=== PATIENT | male | born 1945 | race African-American/Black ===

== ENCOUNTER 2017-10-10 13:45 | Inpatient (IN) | payer MEDICARE, OTHER ==
[2017-10-10] MEDS: ONDANSETRON 4 MG INJ IV ×2 (15:13→15:35)
[2017-10-10] MEDS: FAMOTIDINE 20 MG INJ IV (15:13)
[2017-10-10] MEDS: SOD CHLORIDE 0.9% 1,000 ML IV ×2 (15:13→21:44)
[2017-10-10 15:53] LABS: ADD MAN DIFF? NO
[2017-10-10 15:59] LABS: BASOPHILS % 0.3 % (0.0-2.0); EOSINOPHILS % 0.2 % (0.0-7.0); HEMOGLOBIN 13.4 g/dl (14.0-18.0); LYMPHOCYTES # 1.6 10^3/ul (0.8-2.9); LYMPHOCYTES % 13.5 % (15.0-51.0); MEAN CORPUSCULAR HEMOGLOBIN 28.6 pg (29.0-33.0); MEAN CORPUSCULAR HGB CONC 31.9 g/dl (32.0-37.0); MEAN CORPUSCULAR VOLUME 89.7 fl (82.0-101.0); MEAN PLATELET VOLUME 9.3 fl (7.4-10.4); MONOCYTE # 0.8 10^3/ul (0.3-0.9); MONOCYTES % 7.2 % (0.0-11.0); NEUTROPHIL # 9.1 10^3/ul (1.6-7.5); NEUTROPHILS % 78.4 % (39.0-77.0); PLATELET COUNT 408 10^3/UL (140-415); RED BLOOD COUNT 4.68 10^6/ul (4.70-6.10)
[2017-10-10 15:59] LABS: WHITE BLOOD COUNT 11.6 10^3/ul (4.8-10.8)
[2017-10-10 16:15] LABS: INR 0.95; PROTIME 12.8 Sec (11.9-14.9)
[2017-10-10 16:16] LABS: PARTIAL THROMBOPLASTIN TIME 29.9 Sec (25.0-35.0)
[2017-10-10 16:22] LABS: ALANINE AMINOTRANSFERASE 9 IU/L (13-69); ALBUMIN/GLOBULIN RATIO 1.02; ALKALINE PHOSPHATASE 68 IU/L (42-121); AMYLASE 93 U/L (11-123); ANION GAP 18 (8-16); ASPARTATE AMINO TRANSFERASE 17 IU/L (15-46); BILIRUBIN,INDIRECT 0.2 mg/dl (0-1.1); BILIRUBIN,TOTAL 0.2 mg/dl (0.2-1.3); BLOOD UREA NITROGEN 10 mg/dl (7-20); CALCIUM 10.4 mg/dl (8.4-10.2); CARBON DIOXIDE 29 mmol/L (21-31); CHLORIDE 101 mmol/L (97-110); CREATININE 1.06 mg/dl (0.61-1.24); GLUCOSE 98 mg/dl (70-220); LIPASE 34 U/L (23-300); POTASSIUM 3.6 mmol/L (3.5-5.1); SODIUM 144 mmol/L (135-144); TOTAL PROTEIN 7.9 g/dl (6.1-8.1)
[2017-10-10 16:31] LABS: LACTIC ACID 2.4 mmol/L (0.5-2.0)
[2017-10-10 16:32] LABS: TROPONIN-I < 0.012 ng/ml (0.000-0.120)
[2017-10-10 17:14] LABS: ADD UMIC YES; UR ASCORBIC ACID NEGATIVE (NEGATIVE); UR BILIRUBIN (Dip) 1+ mg/dL (NEGATIVE); UR BLOOD (Dip) NEGATIVE (NEGATIVE); UR CALCIUM OXALATE CRYSTAL FEW /HPF (NONE SEEN); UR CLARITY CLEAR (CLEAR); UR COLOR AMBER (YELLOW); UR GLUCOSE (Dip) NEGATIVE (NEGATIVE); UR KETONES (Dip) 1+ mg/dL (NEGATIVE); UR LEUKOCYTE ESTERASE (Dip) NEGATIVE Leu/ul (NEGATIVE); UR MUCUS MANY /HPF (NONE SEEN); UR NITRITE (Dip) NEGATIVE (NEGATIVE); UR RBC 5 /HPF (0-5); UR SPECIFIC GRAVITY (Dip) 1.029 (1.003-1.030); UR TOTAL PROTEIN (Dip) 2+ mg/dl (NEGATIVE); UR UROBILINOGEN (Dip) 1+ mg/dL (NEGATIVE); UR WBC 9 /HPF (0-5)
[2017-10-10] MEDS: SODIUM CHLORIDE 0.9% 1L BAG IV* (17:46)
[2017-10-10] MEDS ORDERED: ONDANSETRON 4 MG INJ IV (18:00)
[2017-10-10] MEDS ORDERED: ACETAMINOPHEN 325 MG TAB PO ×2 (18:00→18:30)
[2017-10-10] MEDS ORDERED: HYDROCODONE/APAP (5/325) TAB PO (18:30)
[2017-10-10] MEDS: CEFTRIAXONE 1 GM/50 ML (PMX) 50 ML IVPB ×2 (18:30→19:44)
[2017-10-10] MEDS ORDERED: ZOLPIDEM 5 MG TAB PO (18:30)
[2017-10-10] MEDS ORDERED: NACL 0.9% 3 ML SYG IV (18:30)
[2017-10-10] MEDS ORDERED: DOCUSATE SODIUM 100 MG CAP PO (18:30)
[2017-10-10] MEDS ORDERED: morphine LIQ (10 MG/5 ML) CUP PO (19:00)
[2017-10-10 19:23] LABS: LACTIC ACID 1.2 mmol/L (0.5-2.0)
[2017-10-10] MEDS: AZITHROMYCIN 500MG/NS (PMX) 250 ML IVPB (23:29)
[2017-10-11] MEDS: METOCLOPRAMIDE 5 MG TAB PO ×3 (00:16→12:23)
[2017-10-11] MEDS: DIAZEPAM 5 MG TAB PO ×2 (00:17→08:11)
[2017-10-11] MEDS: CALCIUM CARBONATE 750 MG CHEW TAB PO ×2 (00:18→09:58)
[2017-10-11 06:04] LABS: ADD MAN DIFF? NO
[2017-10-11 06:14] LABS: BASOPHILS % 0.3 % (0.0-2.0); EOSINOPHILS % 0.4 % (0.0-7.0); HEMATOCRIT 36.2 % (42.0-52.0); HEMOGLOBIN 11.4 g/dl (14.0-18.0); LYMPHOCYTES # 1.4 10^3/ul (0.8-2.9); MEAN CORPUSCULAR HEMOGLOBIN 28.1 pg (29.0-33.0); MEAN CORPUSCULAR HGB CONC 31.5 g/dl (32.0-37.0); MEAN CORPUSCULAR VOLUME 89.4 fl (82.0-101.0); MEAN PLATELET VOLUME 9.8 fl (7.4-10.4); MONOCYTE # 0.6 10^3/ul (0.3-0.9); MONOCYTES % 8.2 % (0.0-11.0); NEUTROPHIL # 5.6 10^3/ul (1.6-7.5); NEUTROPHILS % 72.7 % (39.0-77.0); PLATELET COUNT 357 10^3/UL (140-415); RED BLOOD COUNT 4.05 10^6/ul (4.70-6.10); RED CELL DISTRIBUTION WIDTH 16.4 % (11.5-14.5)
[2017-10-11 06:14] LABS: WHITE BLOOD COUNT 7.7 10^3/ul (4.8-10.8)
[2017-10-11 06:37] LABS: LACTIC ACID 0.9 mmol/L (0.5-2.0)
[2017-10-11 06:42] LABS: ANION GAP 13 (8-16); BLOOD UREA NITROGEN 7 mg/dl (7-20); CALCIUM 9.2 mg/dl (8.4-10.2); CARBON DIOXIDE 29 mmol/L (21-31); CHLORIDE 109 mmol/L (97-110); CREATININE 0.89 mg/dl (0.61-1.24); GLUCOSE 81 mg/dl (70-220); MAGNESIUM 1.5 mg/dl (1.7-2.5); PHOSPHORUS 2.7 mg/dl (2.5-4.9); POTASSIUM 3.7 mmol/L (3.5-5.1); SODIUM 147 mmol/L (135-144)
[2017-10-11 07:22] LABS: HEMOGLOBIN A1C 5.4 % (0-5.9)
[2017-10-11] MEDS: PANTOPRAZOLE (EC) 40 MG TAB PO (07:54)
[2017-10-11] MEDS: ONDANSETRON 4 MG INJ IV (08:09)
[2017-10-11] MEDS: SOD CHLORIDE 0.9% 1,000 ML IV (08:11)
[2017-10-11] MEDS: THIAMINE 100 MG TAB PO (08:11)
[2017-10-11] MEDS: FOLIC ACID 1 MG TAB PO (08:11)
[2017-10-11] MEDS: CHOLECALCIFEROL 1,000 UNIT TAB PO (08:18)
[2017-10-11] MEDS ORDERED: MAGNESIUM SULFATE 4 GM/100 ML 100 ML IVPB (10:00)
[2017-10-11] MEDS: MAGNESIUM SULFATE 2 GM/50 ML 50 ML IVPB ×2 (10:32→12:23)
[2017-10-11] MEDS: 1/2 NS + KCL 20 MEQ 1,000 ML IV (12:23)
== END 2017-10-11 17:00 | disposition home or self-care (01) | DRG 392 ==
LOC: TEL 17:55 → E/R 13:45 → TEL 10-11 06:10
DX: R11.2 Nausea with vomiting, unspecified (principal); R65.10 Systemic inflammatory response syndrome (SIRS) of non-infectious origin without acute organ dysfunction; E87.2 Acidosis; N39.0 Urinary tract infection, site not specified; R19.7 Diarrhea, unspecified; H54.7 Unspecified visual loss; I10 Essential (primary) hypertension
CPT/HCPCS: 71045; 80048; 80053; 81001; 82150; 83036; 83605; 83690; 83735; 84100; 84484; 85025; 85610; 85730; 87040; 87086; 93005; 96374; 96375; 96376; 99285-25

== ENCOUNTER 2017-10-14 19:48 | Inpatient (IN) | payer MEDICARE, OTHER ==
[2017-10-14 22:09] LABS: ADD MAN DIFF? NO
[2017-10-14 22:14] LABS: BASOPHILS % 0.2 % (0.0-2.0); EOSINOPHILS % 0.4 % (0.0-7.0); HEMATOCRIT 35.7 % (42.0-52.0); HEMOGLOBIN 11.6 g/dl (14.0-18.0); LYMPHOCYTES # 1.3 10^3/ul (0.8-2.9); LYMPHOCYTES % 13.1 % (15.0-51.0); MEAN CORPUSCULAR HEMOGLOBIN 28.1 pg (29.0-33.0); MEAN CORPUSCULAR HGB CONC 32.5 g/dl (32.0-37.0); MEAN CORPUSCULAR VOLUME 86.4 fl (82.0-101.0); MEAN PLATELET VOLUME 9.4 fl (7.4-10.4); MONOCYTE # 0.7 10^3/ul (0.3-0.9); MONOCYTES % 6.8 % (0.0-11.0); NEUTROPHIL # 7.9 10^3/ul (1.6-7.5); PLATELET COUNT 339 10^3/UL (140-415); RED BLOOD COUNT 4.13 10^6/ul (4.70-6.10); RED CELL DISTRIBUTION WIDTH 15.9 % (11.5-14.5)
[2017-10-14 22:38] LABS: ALANINE AMINOTRANSFERASE 14 IU/L (13-69); ALBUMIN 3.7 g/dl (3.3-4.9); ALBUMIN/GLOBULIN RATIO 1.02; ALKALINE PHOSPHATASE 61 IU/L (42-121); ANION GAP 16 (8-16); ASPARTATE AMINO TRANSFERASE 16 IU/L (15-46); BILIRUBIN,INDIRECT 0.2 mg/dl (0-1.1); BILIRUBIN,TOTAL 0.2 mg/dl (0.2-1.3); BLOOD UREA NITROGEN 9 mg/dl (7-20); CALCIUM 10.6 mg/dl (8.4-10.2); CARBON DIOXIDE 30 mmol/L (21-31); CHLORIDE 101 mmol/L (97-110); CREATININE 0.83 mg/dl (0.61-1.24); GLUCOSE 99 mg/dl (70-220); LIPASE 30 U/L (23-300); POTASSIUM 3.5 mmol/L (3.5-5.1); SODIUM 143 mmol/L (135-144); TOTAL PROTEIN 7.3 g/dl (6.1-8.1)
[2017-10-14] MEDS: SOD CHLORIDE 0.9% 500 ML IV (22:47)
[2017-10-14] MEDS: ONDANSETRON 4 MG INJ IV (22:47)
[2017-10-15] MEDS: SOD CHLORIDE 0.9% 500 ML IV (03:02)
[2017-10-15] MEDS: CEFTRIAXONE 1 GM/50 ML (PMX) 50 ML IVPB (03:17)
[2017-10-15] MEDS ORDERED: ONDANSETRON 4 MG INJ IV ×2 (03:30→05:00)
[2017-10-15] MEDS: AZITHROMYCIN 500MG/NS (PMX) 250 ML IVPB (04:01)
[2017-10-15] MEDS: ACETAMINOPHEN 325 MG TAB PO (04:44)
[2017-10-15] MEDS ORDERED: NACL 0.9% 3 ML SYG IV (05:00)
[2017-10-15] MEDS: PANTOPRAZOLE 40 MG INJ IV ×2 (06:07→17:38)
[2017-10-15] MEDS: SOD CHLORIDE 0.9% 1,000 ML IV ×3 (06:07→20:14)
[2017-10-15 10:41] LABS: HDL CHOLESTEROL 50 mg/dl (31-75); LDL CHOLESTEROL,CALCULATED 80 mg/dl; TRIGLYCERIDES 113 mg/dl (0-149)
[2017-10-15 10:41] LABS: CHOLESTEROL 153 mg/dl (100-200)
[2017-10-15 11:07] LABS: MAGNESIUM 1.5 mg/dl (1.7-2.5)
[2017-10-15] MEDS: SUCRALFATE (100 MG/ML) 10ML CUP PO ×3 (12:51→20:13)
[2017-10-15] MEDS: ONDANSETRON 4 MG INJ IV ×2 (12:52→17:38)
[2017-10-15 15:00] LABS: ALPHA FETOPROTEIN 3.68 IU/L (0.00-7.21)
[2017-10-15] MEDS: MAGNESIUM SULFATE 3 GM in DEXTROSE 5% 100 ML IVPB (16:06)
[2017-10-15 16:57] LABS: ADD UMIC YES; UR ASCORBIC ACID NEGATIVE (NEGATIVE); UR BILIRUBIN (Dip) NEGATIVE (NEGATIVE); UR BLOOD (Dip) NEGATIVE (NEGATIVE); UR CLARITY CLEAR (CLEAR); UR COLOR YELLOW (YELLOW); UR GLUCOSE (Dip) NEGATIVE (NEGATIVE); UR KETONES (Dip) 2+ mg/dL (NEGATIVE); UR LEUKOCYTE ESTERASE (Dip) NEGATIVE Leu/ul (NEGATIVE); UR MUCUS MANY /HPF (NONE SEEN); UR NITRITE (Dip) NEGATIVE (NEGATIVE); UR RBC 4 /HPF (0-5); UR SPECIFIC GRAVITY (Dip) 1.027 (1.003-1.030); UR TOTAL PROTEIN (Dip) 1+ mg/dl (NEGATIVE); UR UROBILINOGEN (Dip) NEGATIVE (NEGATIVE); UR WBC 13 /HPF (0-5)
[2017-10-15 17:15] LABS: CARCINOEMBRYONIC ANTIGEN 3.1 ng/ml (0.0-5.0)
[2017-10-15] MEDS: IOHEXOL 300MG/ML 150 ML BTL (17:31)
[2017-10-15] MEDS: SOD CHLORIDE 0.9% 100 ML (17:31)
[2017-10-15] MEDS: METOCLOPRAMIDE 10 MG INJ IV (17:38)
[2017-10-16] MEDS: ONDANSETRON 4 MG INJ IV ×4 (00:10→17:52)
[2017-10-16] MEDS: METOCLOPRAMIDE 10 MG INJ IV ×4 (00:12→17:52)
[2017-10-16] MEDS ORDERED: VANCOMYCIN IV PER PHARMACY XX (01:00)
[2017-10-16] MEDS: VANCOMYCIN 1.25 GM in SOD CHLORIDE 0.9% 250 ML IVPB (02:17)
[2017-10-16] MEDS ORDERED: AZITHROMYCIN 500MG/NS (PMX) 250 ML IVPB (03:00)
[2017-10-16] MEDS ORDERED: CEFTRIAXONE 1 GM/50 ML (PMX) 50 ML IVPB (03:00)
[2017-10-16 06:21] LABS: ADD MAN DIFF? NO
[2017-10-16 06:30] LABS: BASOPHILS % 0.2 % (0.0-2.0); EOSINOPHILS # 0.1 10^3/ul (0.0-0.5); EOSINOPHILS % 0.9 % (0.0-7.0); HEMATOCRIT 33.2 % (42.0-52.0); HEMOGLOBIN 10.6 g/dl (14.0-18.0); LYMPHOCYTES # 1.9 10^3/ul (0.8-2.9); LYMPHOCYTES % 18.3 % (15.0-51.0); MEAN CORPUSCULAR HEMOGLOBIN 27.9 pg (29.0-33.0); MEAN CORPUSCULAR HGB CONC 31.9 g/dl (32.0-37.0); MEAN CORPUSCULAR VOLUME 87.4 fl (82.0-101.0); MEAN PLATELET VOLUME 8.9 fl (7.4-10.4); MONOCYTE # 0.6 10^3/ul (0.3-0.9); MONOCYTES % 5.9 % (0.0-11.0); NEUTROPHIL # 7.8 10^3/ul (1.6-7.5); NEUTROPHILS % 74.3 % (39.0-77.0); PLATELET COUNT 342 10^3/UL (140-415)
[2017-10-16 06:30] LABS: WHITE BLOOD COUNT 10.4 10^3/ul (4.8-10.8)
[2017-10-16] MEDS: PANTOPRAZOLE 40 MG INJ IV ×2 (06:30→17:52)
[2017-10-16 06:51] LABS: ALANINE AMINOTRANSFERASE 10 IU/L (13-69); ALBUMIN 3.1 g/dl (3.3-4.9); ALBUMIN/GLOBULIN RATIO 0.91; ALKALINE PHOSPHATASE 59 IU/L (42-121); ANION GAP 17 (8-16); ASPARTATE AMINO TRANSFERASE 15 IU/L (15-46); BILIRUBIN,INDIRECT 0.2 mg/dl (0-1.1); BILIRUBIN,TOTAL 0.2 mg/dl (0.2-1.3); BLOOD UREA NITROGEN 4 mg/dl (7-20); CARBON DIOXIDE 25 mmol/L (21-31); CHLORIDE 106 mmol/L (97-110); CREATININE 0.78 mg/dl (0.61-1.24); GLUCOSE 73 mg/dl (70-220); POTASSIUM 3.4 mmol/L (3.5-5.1); SODIUM 145 mmol/L (135-144); TOTAL PROTEIN 6.5 g/dl (6.1-8.1)
[2017-10-16 07:02] LABS: MAGNESIUM 1.8 mg/dl (1.7-2.5)
[2017-10-16] MEDS: SUCRALFATE (100 MG/ML) 10ML CUP PO ×4 (09:00→20:40)
[2017-10-16] MEDS: LIDOCAINE 100 MG SYRINGE (10:43)
[2017-10-16] MEDS: FENTAnyl 50 MCG/ML VIAL (10:43)
[2017-10-16] MEDS: PROPOFOL 40 ML (10:43)
[2017-10-16] MEDS: SIMETH/SOD BICARB/CIT AC PKT (E-Z- GAS II) PO (14:13)
[2017-10-16] MEDS: DIATR MEGLU/DIATRIZOATE SODIUM 120 ML BTL (14:13)
[2017-10-16] MEDS: VANCOMYCIN 1 GM 250 ML IVPB (15:13)
[2017-10-16] MEDS: SOD CHLORIDE 0.9% 1,000 ML IV (18:52)
[2017-10-17] MEDS: METOCLOPRAMIDE 10 MG INJ IV ×4 (00:02→17:37)
[2017-10-17] MEDS: ONDANSETRON 4 MG INJ IV ×4 (00:03→18:17)
[2017-10-17] MEDS: VANCOMYCIN 1 GM 250 ML IVPB (02:35)
[2017-10-17] MEDS: PANTOPRAZOLE 40 MG INJ IV ×2 (06:09→17:37)
[2017-10-17] MEDS: SOD CHLORIDE 0.9% 1,000 ML IV ×2 (07:50→18:17)
[2017-10-17] MEDS: SUCRALFATE (100 MG/ML) 10ML CUP PO ×4 (09:07→21:35)
[2017-10-17] MEDS: ACETAMINOPHEN 325 MG TAB PO (22:17)
[2017-10-18] MEDS: ONDANSETRON 4 MG INJ IV
[2017-10-18] MEDS ORDERED: ONDANSETRON 4 MG INJ IV (00:30)
[2017-10-18] MEDS: METOCLOPRAMIDE 10 MG INJ IV ×4 (01:35→18:23)
[2017-10-18 05:57] LABS: ADD MAN DIFF? NO
[2017-10-18 06:04] LABS: WHITE BLOOD COUNT 8.2 10^3/ul (4.8-10.8)
[2017-10-18 06:04] LABS: BASOPHILS % 0.2 % (0.0-2.0); EOSINOPHILS # 0.1 10^3/ul (0.0-0.5); HEMATOCRIT 34.3 % (42.0-52.0); HEMOGLOBIN 11.1 g/dl (14.0-18.0); LYMPHOCYTES # 1.6 10^3/ul (0.8-2.9); LYMPHOCYTES % 19.3 % (15.0-51.0); MEAN CORPUSCULAR HEMOGLOBIN 27.8 pg (29.0-33.0); MEAN CORPUSCULAR HGB CONC 32.4 g/dl (32.0-37.0); MEAN PLATELET VOLUME 8.8 fl (7.4-10.4); MONOCYTE # 0.6 10^3/ul (0.3-0.9); MONOCYTES % 7.5 % (0.0-11.0); NEUTROPHIL # 5.8 10^3/ul (1.6-7.5); NEUTROPHILS % 71.6 % (39.0-77.0); PLATELET COUNT 339 10^3/UL (140-415); RED BLOOD COUNT 3.99 10^6/ul (4.70-6.10); RED CELL DISTRIBUTION WIDTH 15.5 % (11.5-14.5)
[2017-10-18 06:25] LABS: INR 1.08; PROTIME 14.1 Sec (11.9-14.9); PT RATIO 1.1
[2017-10-18 06:28] LABS: ANION GAP 11 (8-16); CARBON DIOXIDE 32 mmol/L (21-31); CHLORIDE 103 mmol/L (97-110); CREATININE 0.75 mg/dl (0.61-1.24); GLUCOSE 87 mg/dl (70-220); MAGNESIUM 1.3 mg/dl (1.7-2.5); SODIUM 143 mmol/L (135-144)
[2017-10-18 06:31] LABS: BLOOD UREA NITROGEN < 2 mg/dl (7-20)
[2017-10-18 06:32] LABS: POTASSIUM 2.7 mmol/L (3.5-5.1)
[2017-10-18] MEDS: PANTOPRAZOLE 40 MG INJ IV ×2 (06:45→18:23)
[2017-10-18] MEDS: SOD CHLORIDE 0.9% 1,000 ML IV (06:45)
[2017-10-18] MEDS ORDERED: MAGNESIUM SULFATE 3 GM in DEXTROSE 5% 100 ML IVPB (07:00)
[2017-10-18] MEDS: SUCRALFATE (100 MG/ML) 10ML CUP PO ×4 (08:09→21:00)
[2017-10-18] MEDS: MAGNESIUM SULFATE 1 GM/D5W 100 ML IVPB ×3 (08:09→12:33)
[2017-10-18] MEDS: POTASSIUM CHLORIDE 100 ML IVPB ×3 (10:47→15:01)
[2017-10-18 10:51] LABS: PREALBUMIN 7.3 mg/dl (17.6-36.0)
[2017-10-18] MEDS: D5W-0.45 NACL + KCL 20 MEQ 1,000 ML IV ×2 (12:32→21:00)
[2017-10-18] MEDS: ACETAMINOPHEN 325 MG TAB PO (12:33)
[2017-10-19] MEDS: METOCLOPRAMIDE 10 MG INJ IV ×4 (00:01→18:07)
[2017-10-19 06:24] LABS: ADD MAN DIFF? NO
[2017-10-19 06:35] LABS: WHITE BLOOD COUNT 8.5 10^3/ul (4.8-10.8)
[2017-10-19 06:35] LABS: BASOPHILS % 0.4 % (0.0-2.0); EOSINOPHILS # 0.2 10^3/ul (0.0-0.5); EOSINOPHILS % 2.5 % (0.0-7.0); HEMATOCRIT 36.8 % (42.0-52.0); HEMOGLOBIN 12.2 g/dl (14.0-18.0); LYMPHOCYTES # 1.3 10^3/ul (0.8-2.9); LYMPHOCYTES % 15.5 % (15.0-51.0); MEAN CORPUSCULAR HEMOGLOBIN 28.4 pg (29.0-33.0); MEAN CORPUSCULAR HGB CONC 33.2 g/dl (32.0-37.0); MEAN CORPUSCULAR VOLUME 85.6 fl (82.0-101.0); MEAN PLATELET VOLUME 8.8 fl (7.4-10.4); MONOCYTE # 0.7 10^3/ul (0.3-0.9); MONOCYTES % 7.8 % (0.0-11.0); NEUTROPHIL # 6.2 10^3/ul (1.6-7.5); NEUTROPHILS % 73.4 % (39.0-77.0); PLATELET COUNT 348 10^3/UL (140-415); RED CELL DISTRIBUTION WIDTH 15.7 % (11.5-14.5)
[2017-10-19 06:49] LABS: ANION GAP 13 (8-16); CALCIUM 9.2 mg/dl (8.4-10.2); CARBON DIOXIDE 31 mmol/L (21-31); CHLORIDE 103 mmol/L (97-110); CREATININE 0.84 mg/dl (0.61-1.24); GLUCOSE 94 mg/dl (70-220); MAGNESIUM 1.6 mg/dl (1.7-2.5); POTASSIUM 3.3 mmol/L (3.5-5.1); SODIUM 144 mmol/L (135-144)
[2017-10-19] MEDS: PANTOPRAZOLE 40 MG INJ IV ×2 (06:50→18:07)
[2017-10-19] MEDS: D5W-0.45 NACL + KCL 20 MEQ 1,000 ML IV ×2 (06:50→16:23)
[2017-10-19 06:55] LABS: BLOOD UREA NITROGEN < 2 mg/dl (7-20)
[2017-10-19] MEDS: SUCRALFATE (100 MG/ML) 10ML CUP PO ×4 (09:00→21:00)
[2017-10-19] MEDS: POTASSIUM CHLORIDE 100 ML IVPB ×2 (15:43→18:07)
[2017-10-19] MEDS: ACETAMINOPHEN 325 MG TAB PO (16:23)
[2017-10-19] MEDS: ALBUTEROL/IPRATROPIUM (NEB) 3 ML AMP HHN (20:28)
[2017-10-19] MEDS ORDERED: ACETAMINOPHEN 1000MG/100ML IV 100 ML IVPB (22:00)
[2017-10-20] MEDS: D5W-0.45 NACL + KCL 20 MEQ 1,000 ML IV ×3 (00:33→23:00)
[2017-10-20] MEDS: METOCLOPRAMIDE 10 MG INJ IV ×5 (00:33→23:12)
[2017-10-20] MEDS ORDERED: POTASSIUM CHLORIDE 50 ML IVPB (06:00)
[2017-10-20] MEDS: PANTOPRAZOLE 40 MG INJ IV ×2 (06:09→17:46)
[2017-10-20 06:34] LABS: ANION GAP 10 (8-16); BLOOD UREA NITROGEN < 2 mg/dl (7-20); CALCIUM 9.2 mg/dl (8.4-10.2); CARBON DIOXIDE 29 mmol/L (21-31); CHLORIDE 106 mmol/L (97-110); CREATININE 0.77 mg/dl (0.61-1.24); GLUCOSE 167 mg/dl (70-220); SODIUM 141 mmol/L (135-144)
[2017-10-20] MEDS: SUCRALFATE (100 MG/ML) 10ML CUP PO ×4 (08:43→20:38)
[2017-10-20] MEDS ORDERED: LIDOCAINE 2% (SDV) 5 ML INJ (12:47)
[2017-10-20] MEDS ORDERED: MIDAZOLAM 1 MG/ML 2 ML INJ (12:47)
[2017-10-20] MEDS ORDERED: CEFAZOLIN 2 GM/50 ML (PMX) 50 ML IVPB (12:53)
[2017-10-20] MEDS ORDERED: FENTAnyl 50 MCG/ML VIAL IV (13:00)
[2017-10-20] MEDS ORDERED: PROCHLORPERAZINE 10 MG INJ IV (13:00)
[2017-10-20] MEDS ORDERED: MEPERIDINE 25 MG INJ IV (13:00)
[2017-10-20] MEDS ORDERED: HYDROmorphONE (0.2 MG/ML) 10ML SYG IV (13:00)
[2017-10-20] MEDS ORDERED: ONDANSETRON 4 MG INJ IV (13:00)
[2017-10-20] MEDS ORDERED: DIPHENHYDRAMINE 50 MG INJ IV (13:00)
[2017-10-20] MEDS ORDERED: FENTAnyl 50 MCG/ML VIAL (13:10)
[2017-10-20] MEDS ORDERED: LABETALOL HCL 20MG INJ (13:11)
[2017-10-20] MEDS ORDERED: hydrALAzine 20 MG INJ (13:37)
[2017-10-20] MEDS: hydrALAzine 20 MG INJ IV ×3 (13:43→14:01)
[2017-10-20] MEDS ORDERED: LABETALOL HCL 20MG INJ IV (14:00)
[2017-10-20] MEDS: COSYNTROPIN 0.25 MG INJ IV (15:33)
[2017-10-20] MEDS: SOD CHLORIDE 0.9% 500 ML IV (20:44)
[2017-10-21] MEDS: METOCLOPRAMIDE 10 MG INJ IV (05:36)
[2017-10-21] MEDS: PANTOPRAZOLE 40 MG INJ IV (05:36)
[2017-10-21] MEDS: D5W-0.45 NACL + KCL 20 MEQ 1,000 ML IV (06:07)
[2017-10-21] MEDS: SUCRALFATE (100 MG/ML) 10ML CUP PO ×4 (08:29→21:35)
[2017-10-21] MEDS: METOCLOPRAMIDE 5 MG TAB PO ×3 (17:00→21:35)
[2017-10-21] MEDS: PANTOPRAZOLE (EC) 40 MG TAB PO (19:02)
[2017-10-21] MEDS: ACETAMINOPHEN 325 MG TAB PO (21:35)
[2017-10-22] MEDS: PANTOPRAZOLE (EC) 40 MG TAB PO ×2 (05:21→17:33)
[2017-10-22] MEDS: SUCRALFATE (100 MG/ML) 10ML CUP PO ×3 (08:49→17:33)
[2017-10-22] MEDS: METOCLOPRAMIDE 5 MG TAB PO ×3 (08:49→17:33)
== END 2017-10-22 20:05 | disposition home health service (06) | DRG 391 ==
LOC: MS2 10-15 03:27 → E/R 19:48 → MS2 10-16 18:33
PROC: 0DB68ZX Excision of Stomach, Via Natural or Artificial Opening Endoscopic, Diagnostic (ICD-10-PCS; principal; 2017-10-16 10:25)
PROC: 0DH63UZ Insertion of Feeding Device into Stomach, Percutaneous Approach (ICD-10-PCS; 2017-10-16 10:25)
DX: K22.4 Dyskinesia of esophagus (principal); J18.9 Pneumonia, unspecified organism; E43 Unspecified severe protein-calorie malnutrition; Z68.1 Body mass index [BMI] 19.9 or less, adult; K21.0 Gastro-esophageal reflux disease with esophagitis; I10 Essential (primary) hypertension; F41.9 Anxiety disorder, unspecified; K20.9 Esophagitis, unspecified; K57.90 Diverticulosis of intestine, part unspecified, without perforation or abscess without bleeding; H54.8 Legal blindness, as defined in USA; D64.9 Anemia, unspecified; Z87.891 Personal history of nicotine dependence; F12.10 Cannabis abuse, uncomplicated; R10.13 Epigastric pain; K29.80 Duodenitis without bleeding; K22.2 Esophageal obstruction
CPT/HCPCS: 36415; 71045; 71250; 72072; 74177; 74240; 80048; 80053; 80061; 80202; 81001; 82105; 82378; 82533; 83690; 83735; 84134; 84443; 85025; 85610; 85730; 87040; 87045; 87075; 88305; 88312; 88313; 92610; 93005; 94664; 96374; 96375; 97162; 99285-25

== ENCOUNTER 2017-11-12 07:03 | Emergency (ER) | payer MEDICARE, OTHER ==
[2017-11-12] MEDS: LIDOCAINE 1% (MDV) 10 ML INJ INJ ×2 (08:15→08:29)
[2017-11-12] MEDS: CEFTRIAXONE 1 GM INJ IM (08:27)
== END 2017-11-12 08:46 | disposition home or self-care (01) ==
LOC: FTE 07:03
DX: L02.31 Cutaneous abscess of buttock (principal); I10 Essential (primary) hypertension; Z87.891 Personal history of nicotine dependence
CPT/HCPCS: 10061; 96372; 99284-25

== ENCOUNTER 2017-11-14 06:39 | Emergency (ER) | payer MEDICARE, OTHER | END 2017-11-14 07:50 | disposition home or self-care (01) | LOC: FTE 06:39 | DX: Z48.01 Encounter for change or removal of surgical wound dressing (principal); I10 Essential (primary) hypertension; Z87.891 Personal history of nicotine dependence | CPT/HCPCS: 99281 ==

== ENCOUNTER 2017-12-15 06:19 | Emergency (ER) | payer MEDICARE, OTHER | END 2017-12-15 09:10 | disposition home or self-care (01) | LOC: E/R 06:19 | DX: K22.4 Dyskinesia of esophagus (principal); I10 Essential (primary) hypertension; F17.210 Nicotine dependence, cigarettes, uncomplicated; Z51.89 Encounter for other specified aftercare | CPT/HCPCS: 99282 ==

== ENCOUNTER 2018-12-08 19:24 | Inpatient (IN) | payer MEDICARE, OTHER ==
[2018-12-08 21:41] LABS: ADD MAN DIFF? NO
[2018-12-08 21:43] LABS: WHITE BLOOD COUNT 14.2 10^3/ul (4.8-10.8)
[2018-12-08 21:43] LABS: BASOPHILS % 0.2 % (0.0-2.0); EOSINOPHILS # 0.2 10^3/ul (0.0-0.5); EOSINOPHILS % 1.1 % (0.0-7.0); HEMATOCRIT 43.4 % (42.0-52.0); HEMOGLOBIN 13.8 g/dl (14.0-18.0); LYMPHOCYTES # 1.7 10^3/ul (0.8-2.9); LYMPHOCYTES % 12.3 % (15.0-51.0); MEAN CORPUSCULAR HEMOGLOBIN 29.3 pg (29.0-33.0); MEAN CORPUSCULAR HGB CONC 31.8 g/dl (32.0-37.0); MEAN CORPUSCULAR VOLUME 92.1 fl (82.0-101.0); MEAN PLATELET VOLUME 8.5 fl (7.4-10.4); MONOCYTE # 1.1 10^3/ul (0.3-0.9); MONOCYTES % 7.5 % (0.0-11.0); NEUTROPHIL # 11.2 10^3/ul (1.6-7.5); NEUTROPHILS % 78.6 % (39.0-77.0); PLATELET COUNT 289 10^3/UL (140-415); RED BLOOD COUNT 4.71 10^6/ul (4.70-6.10); RED CELL DISTRIBUTION WIDTH 14.5 % (11.5-14.5)
[2018-12-08] MEDS ORDERED: IOHEXOL 300MG/ML 30 ML BTL (21:47)
[2018-12-08] MEDS ORDERED: DIATR MEGLU/DIATRIZOATE SODIUM 30 ML SOLUTION PO (22:00)
[2018-12-08 22:07] LABS: ALANINE AMINOTRANSFERASE 18 IU/L (13-69); ALBUMIN 4.4 g/dl (3.3-4.9); ALBUMIN/GLOBULIN RATIO 1.12; ALKALINE PHOSPHATASE 85 IU/L (42-121); ANION GAP 11 (5-13); ASPARTATE AMINO TRANSFERASE 26 IU/L (15-46); BILIRUBIN,INDIRECT 0.5 mg/dl (0-1.1); BILIRUBIN,TOTAL 0.5 mg/dl (0.2-1.3); BLOOD UREA NITROGEN 15 mg/dl (7-20); CALCIUM 11.2 mg/dl (8.4-10.2); CARBON DIOXIDE 28 mmol/L (21-31); CHLORIDE 103 mmol/L (97-110); CREATININE 0.97 mg/dl (0.61-1.24); GLUCOSE 101 mg/dl (70-220); LIPASE 53 U/L (23-300); POTASSIUM 4.6 mmol/L (3.5-5.1); SODIUM 142 mmol/L (135-144); TOTAL PROTEIN 8.3 g/dl (6.1-8.1)
[2018-12-08] MEDS: SOD CHLORIDE 0.9% 1,000 ML IV (22:38)
[2018-12-08] MEDS ORDERED: ACETAMINOPHEN 325 MG TAB PO (23:00)
[2018-12-08] MEDS ORDERED: ONDANSETRON 4 MG INJ IV ×2 (23:00)
[2018-12-08] MEDS ORDERED: NACL 0.9% 3 ML SYG IV (23:00)
[2018-12-08] MEDS ORDERED: ACETAMINOPHEN 650 MG SUPP PR (23:00)
[2018-12-09] MEDS: KETOROLAC 15 MG INJ IV (00:37)
[2018-12-09] MEDS: SOD CHLORIDE 0.9% 1,000 ML IV ×2 (00:38→14:56)
[2018-12-09 05:19] LABS: ADD MAN DIFF? NO
[2018-12-09 05:21] LABS: WHITE BLOOD COUNT 10.5 10^3/ul (4.8-10.8)
[2018-12-09 05:21] LABS: BASOPHILS % 0.4 % (0.0-2.0); EOSINOPHILS # 0.2 10^3/ul (0.0-0.5); HEMATOCRIT 40.9 % (42.0-52.0); HEMOGLOBIN 12.9 g/dl (14.0-18.0); LYMPHOCYTES # 1.5 10^3/ul (0.8-2.9); LYMPHOCYTES % 13.8 % (15.0-51.0); MEAN CORPUSCULAR HEMOGLOBIN 29.1 pg (29.0-33.0); MEAN CORPUSCULAR HGB CONC 31.5 g/dl (32.0-37.0); MEAN CORPUSCULAR VOLUME 92.3 fl (82.0-101.0); MEAN PLATELET VOLUME 9.5 fl (7.4-10.4); MONOCYTE # 0.9 10^3/ul (0.3-0.9); MONOCYTES % 8.6 % (0.0-11.0); NEUTROPHIL # 7.8 10^3/ul (1.6-7.5); NEUTROPHILS % 74.8 % (39.0-77.0); PLATELET COUNT 295 10^3/UL (140-415); RED BLOOD COUNT 4.43 10^6/ul (4.70-6.10); RED CELL DISTRIBUTION WIDTH 14.6 % (11.5-14.5)
[2018-12-09 06:02] LABS: ALANINE AMINOTRANSFERASE 13 IU/L (13-69); ALBUMIN 3.8 g/dl (3.3-4.9); ALBUMIN/GLOBULIN RATIO 1.11; ALKALINE PHOSPHATASE 75 IU/L (42-121); ANION GAP 7 (5-13); ASPARTATE AMINO TRANSFERASE 24 IU/L (15-46); BILIRUBIN,INDIRECT 0.5 mg/dl (0-1.1); BILIRUBIN,TOTAL 0.5 mg/dl (0.2-1.3); BLOOD UREA NITROGEN 16 mg/dl (7-20); CALCIUM 10.3 mg/dl (8.4-10.2); CARBON DIOXIDE 28 mmol/L (21-31); CHLORIDE 105 mmol/L (97-110); CHOLESTEROL 172 mg/dl (100-200); CREATININE 0.96 mg/dl (0.61-1.24); GLUCOSE 98 mg/dl (70-220); HDL CHOLESTEROL 42 mg/dl (31-75); LDL CHOLESTEROL,CALCULATED 101 mg/dl; MAGNESIUM 1.9 mg/dl (1.7-2.5); POTASSIUM 4.1 mmol/L (3.5-5.1); SODIUM 140 mmol/L (135-144); TOTAL PROTEIN 7.2 g/dl (6.1-8.1); TRIGLYCERIDES 147 mg/dl (0-149)
[2018-12-09] MEDS: PANTOPRAZOLE 40 MG INJ IV (06:18)
[2018-12-09 07:04] LABS: THYROID STIMULATING HORMONE 0.556 MIU/L (0.465-4.680)
[2018-12-09 07:14] LABS: HEMOGLOBIN A1C 5.5 % (0-5.9)
[2018-12-09] MEDS: LORAZEPAM 2 MG INJ IV (11:48)
[2018-12-09] MEDS: DIAZEPAM 5 MG TAB PO (20:35)
[2018-12-10] MEDS: SOD CHLORIDE 0.9% 1,000 ML IV (04:20)
[2018-12-10 05:53] LABS: ADD MAN DIFF? NO
[2018-12-10 05:57] LABS: BASOPHIL # 0.1 10^3/ul (0.0-0.1); BASOPHILS % 0.3 % (0.0-2.0); EOSINOPHILS # 0.3 10^3/ul (0.0-0.5); EOSINOPHILS % 1.5 % (0.0-7.0); HEMATOCRIT 39.3 % (42.0-52.0); HEMOGLOBIN 12.9 g/dl (14.0-18.0); LYMPHOCYTES # 1.5 10^3/ul (0.8-2.9); LYMPHOCYTES % 8.6 % (15.0-51.0); MEAN CORPUSCULAR HEMOGLOBIN 29.5 pg (29.0-33.0); MEAN CORPUSCULAR HGB CONC 32.8 g/dl (32.0-37.0); MEAN CORPUSCULAR VOLUME 89.9 fl (82.0-101.0); MEAN PLATELET VOLUME 10.3 fl (7.4-10.4); MONOCYTES % 6.1 % (0.0-11.0); NEUTROPHIL # 14.1 10^3/ul (1.6-7.5); NEUTROPHILS % 83.1 % (39.0-77.0); PLATELET COUNT 240 10^3/UL (140-415); RED BLOOD COUNT 4.37 10^6/ul (4.70-6.10); RED CELL DISTRIBUTION WIDTH 14.3 % (11.5-14.5)
[2018-12-10 05:57] LABS: WHITE BLOOD COUNT 16.9 10^3/ul (4.8-10.8)
[2018-12-10 06:13] LABS: ANION GAP 8 (5-13); BLOOD UREA NITROGEN 14 mg/dl (7-20); CALCIUM 10.1 mg/dl (8.4-10.2); CARBON DIOXIDE 24 mmol/L (21-31); CHLORIDE 109 mmol/L (97-110); CREATININE 0.85 mg/dl (0.61-1.24); GLUCOSE 95 mg/dl (70-220); MAGNESIUM 1.7 mg/dl (1.7-2.5); POTASSIUM 4.2 mmol/L (3.5-5.1); SODIUM 141 mmol/L (135-144)
[2018-12-10] MEDS: PANTOPRAZOLE 40 MG INJ IV (06:23)
[2018-12-10] MEDS ORDERED: PROPOFOL 40 ML (12:54)
[2018-12-10] MEDS ORDERED: LIDOCAINE 2% (SDV) 5 ML INJ (12:54)
[2018-12-10] MEDS ORDERED: PROPOFOL 200 MG INJ (12:54)
[2018-12-10] MEDS: PIPER-TAZO 3.375 GM IV (PMX) 100 ML IVPB ×2 (16:30→21:33)
[2018-12-11] MEDS: SOD CHLORIDE 0.9% 1,000 ML IV ×3 (01:23→15:50)
[2018-12-11] MEDS: PANTOPRAZOLE 40 MG INJ IV (05:02)
[2018-12-11] MEDS: PIPER-TAZO 3.375 GM IV (PMX) 100 ML IVPB ×3 (05:03→22:01)
[2018-12-11 05:44] LABS: ADD MAN DIFF? NO
[2018-12-11 05:50] LABS: BASOPHILS % 0.3 % (0.0-2.0); EOSINOPHILS # 0.2 10^3/ul (0.0-0.5); EOSINOPHILS % 1.8 % (0.0-7.0); HEMATOCRIT 38.4 % (42.0-52.0); HEMOGLOBIN 12.6 g/dl (14.0-18.0); LYMPHOCYTES # 1.7 10^3/ul (0.8-2.9); LYMPHOCYTES % 18.4 % (15.0-51.0); MEAN CORPUSCULAR HEMOGLOBIN 29.4 pg (29.0-33.0); MEAN CORPUSCULAR HGB CONC 32.8 g/dl (32.0-37.0); MEAN CORPUSCULAR VOLUME 89.7 fl (82.0-101.0); MEAN PLATELET VOLUME 9.9 fl (7.4-10.4); MONOCYTES % 10.6 % (0.0-11.0); NEUTROPHIL # 6.4 10^3/ul (1.6-7.5); NEUTROPHILS % 68.5 % (39.0-77.0); PLATELET COUNT 249 10^3/UL (140-415); RED BLOOD COUNT 4.28 10^6/ul (4.70-6.10); RED CELL DISTRIBUTION WIDTH 14.4 % (11.5-14.5)
[2018-12-11 05:50] LABS: WHITE BLOOD COUNT 9.3 10^3/ul (4.8-10.8)
[2018-12-11 06:05] LABS: ANION GAP 9 (5-13); BLOOD UREA NITROGEN 11 mg/dl (7-20); CALCIUM 9.8 mg/dl (8.4-10.2); CARBON DIOXIDE 23 mmol/L (21-31); CHLORIDE 106 mmol/L (97-110); CREATININE 0.94 mg/dl (0.61-1.24); GLUCOSE 105 mg/dl (70-220); SODIUM 138 mmol/L (135-144)
[2018-12-11] MEDS: morphine 2 MG INJ IV (10:34)
[2018-12-11] MEDS: DIAZEPAM 5 MG TAB PO (20:41)
[2018-12-12] MEDS: PIPER-TAZO 3.375 GM IV (PMX) 100 ML IVPB ×2 (05:42→13:52)
[2018-12-12] MEDS: PANTOPRAZOLE 40 MG INJ IV ×2 (05:42→17:39)
[2018-12-12] MEDS: ACETAMINOPHEN 325 MG TAB PO ×2 (06:25→15:47)
[2018-12-12] MEDS: METOCLOPRAMIDE 10 MG INJ IV ×3 (07:40→17:39)
[2018-12-12] MEDS: SUCRALFATE (100 MG/ML) 10ML CUP NGT ×3 (14:42→21:33)
[2018-12-12] MEDS ORDERED: SOD CHLORIDE 0.9% 100 ML (16:19)
[2018-12-12] MEDS ORDERED: IOHEXOL 300MG/ML 150 ML BTL (16:19)
[2018-12-12] MEDS: ACETAMINOPHEN 325 MG TAB GTB (21:34)
[2018-12-13] MEDS: METOCLOPRAMIDE 10 MG INJ IV ×4 (00:53→17:24)
[2018-12-13] MEDS: PANTOPRAZOLE 40 MG INJ IV (05:28)
[2018-12-13] MEDS: ACETAMINOPHEN 325 MG TAB GTB (06:12)
[2018-12-13] MEDS: DIAZEPAM 5 MG TAB GTB (08:06)
[2018-12-13] MEDS: SUCRALFATE (100 MG/ML) 10ML CUP NGT ×3 (08:06→17:14)
== END 2018-12-13 17:35 | disposition home or self-care (01) | DRG 392 ==
LOC: 5EC 22:39 → E/R 19:24
PROC: 0DB68ZX Excision of Stomach, Via Natural or Artificial Opening Endoscopic, Diagnostic (ICD-10-PCS; principal; 2018-12-10 12:15)
PROC: 0DB58ZX Excision of Esophagus, Via Natural or Artificial Opening Endoscopic, Diagnostic (ICD-10-PCS; 2018-12-10 12:15)
DX: R11.2 Nausea with vomiting, unspecified (principal); K22.8 Other specified diseases of esophagus; K29.80 Duodenitis without bleeding; K21.0 Gastro-esophageal reflux disease with esophagitis; F41.9 Anxiety disorder, unspecified; H54.8 Legal blindness, as defined in USA; K22.4 Dyskinesia of esophagus; K29.50 Unspecified chronic gastritis without bleeding; Z93.1 Gastrostomy status
CPT/HCPCS: 36415; 71045; 74018; 74178; 74230; 80048; 80053; 80061; 83036; 83690; 83735; 84443; 85025; 88305; 88313; 93005; 99285-25